=== PATIENT | male | born 1955 | race Caucasian/White ===

== ENCOUNTER 2017-09-07 18:05 | Emergency (ER) | payer BC, SELFPAY ==
[2017-09-07 18:07] VITALS: BP 140/79; PULSE 84; RESP 18; TEMP 36.6; O2SAT 97; BMI 34.2
--- NOTE | 2017-09-07 18:57 | RAD_ITS ---
STUDY: X-RAY - LEFT KNEE REASON FOR EXAM: Male, 62 years old. Pain TECHNIQUE: Four view(s) of the knee were obtained. COMPARISON: None. FINDINGS: The distal femur is unremarkable. The proximal tibia is unremarkable. There is mild narrowing of the medial femorotibial compartment. Normal lateral femorotibial compartment. Normal patellofemoral articulation. There is no fullness above the patella. The soft tissue structures are unremarkable. RAD/Knee 4 or More Views IMPRESSION: No acute abnormalities are seen in the left knee. There are mild degenerative changes medially. Electronically Signed: Annia Hill MD at 19:13 EDT Tel Direct: [phone], Service support ,
--- NOTE | 2017-09-07 19:21 | US_ITS ---
STUDY: VENOUS DOPPLER ULTRASOUND - LEFT LOWER EXTREMITY REASON FOR EXAM: Male, 62 years old. Left knee pain and swelling since this morning TECHNIQUE: Ultrasound evaluation of the deep vein system to include de jesus-scale imaging and compression was performed. De Jesus-scale imaging and Doppler sonographic evaluation, including duplex spectral analysis and qualitative color flow sonography, was performed. COMPARISON: None. FINDINGS: Common Femoral Vein: Normal compression, spontaneity and augmentation. Normal color Doppler. Common Femoral Vein/Greater Saphenous Junction: There is normal compression. No internal echoes are seen. Deep Femoral Vein: Not imaged Femoral Proximal: There is normal compression. No internal echoes are seen. Femoral Middle: Normal compression, spontaneity and augmentation. Normal color Doppler. Femoral Distal: There is normal compression. No internal echoes are seen. Popliteal Vein: Normal compression, spontaneity and augmentation. Normal color Doppler. Posterior Tibial Vein: Normal compression. No internal echoes are seen. Peroneal Vein: Normal compression. No internal echoes are seen. US/Venous Duplex Imag/Limited/Uni IMPRESSION: There is no evidence of deep venous thrombosis of the left lower extremity. Electronically Signed: Kasi Bass MD at 20:10 EDT , Service support ,
--- NOTE | 2017-09-07 19:49 | ED.VISSUMM ---
- ER Visit Summary Date of Service: 09/07/17 Chief Complaint: Left knee pain History of Present Illness: The patient is a 62 M who presents with left knee pain. It began earlier today. It was 8 out of 10. It improved with Advil down to a 5 out of 10. His is also concerned that he may have some calf swelling. He went to urgent care who was concerned for possible DVT although the patient has no risk factors. He was advised to be evaluated here in the ER. Physical Examination: Afebrile vitals are normal Heart regular rate and rhythm Lungs are clear Abdomen soft Patient has no edema of the lower leg he does not have any appreciable effusion his pain was isolated to the lateral left knee he has brisk capillary refill normal sensation light touch she has active full range of motion of the knee although this does reproduce some pain Test Results: Venous duplex is negative. Knee x-ray shows mild degenerative changes no acute abnormality. Emergency Department Course and Treatment: Patient was advised on supportive care including rest ice and elevation. I do believe this is due to left knee strain. He has a knee brace at home which he can use. He was also advised to use Advil for pain. All questions answered bedside. Patient agreeable to plan. Patient discharged. Treatment Plan: [] Disposition: Discharge Impression: Acute left knee pain This note was generated with [employer] dictation software. It may contain incorrect words, spelling, and punctuation that were not noted in review of the chart prior to signing ED Disposition - Plan for ED Patient: Chief Complaint: Lower Extremity Injury Referrals: Care Physician,No Primary [Primary Care Provider] -
--- NOTE | 2017-09-07 19:52 | ED.DEP ---
ED Disposition - Plan for ED Patient: Chief Complaint: Lower Extremity Injury Instructions: ED Knee Pain [facility] Referrals: Care Physician,No Primary [Primary Care Provider] -
[2017-09-07 20:11] VITALS: BP 139/87; PULSE 54; RESP 18; O2SAT 97
== END 2017-09-07 20:11 | disposition home or self-care (01) ==
PROVIDERS: Emergency Provider Emergency Medicine
DX: M25.562 Pain in left knee (principal); M79.89 Other specified soft tissue disorders; I10 Essential (primary) hypertension; Z79.82 Long term (current) use of aspirin; Z79.899 Other long term (current) drug therapy
CPT/HCPCS: 73564; 93971; 99282

== ENCOUNTER 2020-06-06 05:14 | Day surgery (SDC) | payer MEDICARE, SELFPAY ==
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
--- NOTE | 2020-05-28 14:08 | EKG12_ITS ---
Test Reason : PRE OP Blood Pressure : / mmHG Vent. Rate : 069 BPM Atrial Rate : 069 BPM P-R Int : 172 ms QRS Dur : 098 ms QT Int : 372 ms P-R-T Axes : 018 -11 029 degrees QTc Int : 398 ms Normal sinus rhythm Normal ECG Confirmed by STANLEY GODFREY, RIVER ([id number]), news video editor JAI LACKEY ([id number]) on 05/30/2020 7:35:49 AM Referred By: Ernesto Canada Confirmed By:RIVER ANGEL MD
[2020-05-28 15:12] LABS: Absolute Neutrophil Count 5.7 X10^3/uL (2.0-7.7); Basophil# 0.06 X10^3/uL; Basophil% 0.7 % (0-1); Eosinophils% 1.2 % (0-5); Hematocrit 44.3 % (40-54); Hemoglobin 14.9 g/dL (13.0-16.5); Lymphocyte % 23.7 % (19-41); Mean Corp Hgb Conc 33.6 g/dL (32-36); Mean Corpuscular Hgb 30.3 pg (27.0-32.0); Mean Platelet Vol. 9.2 fl (6.2-12.0); Monocyte# 0.61 X10^3/uL; Monocyte% 7.2 % (0-10); NRBC Flagged by Analyzer 0 % (0-5); Neutrophil # 5.65 X10^3/uL (2.7-7.7); Neutrophil % 66.8 % (47-70); Platelet Count 264 K/mm3 (150-450); RBC Distribution Width CV 11.9 % (11.6-14.6); RBC Distribution Width SD 39.2 fl (35.1-43.9); Red Blood Count 4.92 M/mm3 (4.6-6.2); White Blood Count 8.5 K/mm3 (4.4-11.0)
[2020-05-28 15:37] LABS: Magnesium 2.1 mg/dL (1.6-2.6)
[2020-05-28 15:48] LABS: Anion Gap 5 (5-15); BUN 18 mg/dL (7-18); BUN/Creat Ratio 19.8 RATIO (10-20); Calcium,Total 9.6 mg/dL (8.5-10.1); Chloride 104 mmol/L (98-107); Creatinine, Serum 0.91 mg/dL (0.70-1.30); EST Glomerular Filtration Rate 89 mL/min (>60); Est Glom Filt Rate - Afr Amer 107 mL/min (>60); Glucose 114 mg/dL (74-106); Potassium 3.7 mmol/L (3.5-5.1); Sodium Level 136 mmol/L (136-145)
[2020-06-06] VITALS (13 sets, daily range): BP systolic 92–138; BP diastolic 48–80; PULSE 48–78; RESP 16–18; TEMP 36–36.7; O2SAT 97–100; BMI 34.5
[2020-06-06] MEDS: Lactated Ringers 1,000 ML 999 ML IV ×2 (05:50→10:15)
[2020-06-06] MEDS: Gabapentin 600 MG Tablet PO (06:29)
[2020-06-06] MEDS: Acetaminophen 500 MG Tablet 1000 MG PO ×2 (06:30→14:16)
[2020-06-06] MEDS: Celecoxib 200 MG Capsule 400 MG PO (06:30)
[2020-06-06 06:55] LABS: Bedside Glucose 92 mg/dL (70-110)
[2020-06-06] MEDS: Lactated Ringers 1,000 ML 75 ML IV (07:05)
[2020-06-06] MEDS: Scopolamine 1mg/72hr Patch 1 PATCH TD (07:15)
[2020-06-06] MEDS: dexAMETHasone 10 MG/ML Vial IV (07:41)
--- NOTE | 2020-06-06 08:05 | RAD_ITS ---
STUDY: X-RAY - PELVIS AND LEFT HIP REASON FOR EXAM: Left hip pain, left hip arthroplasty. TECHNIQUE: 2 intraoperative images of the pelvis and hip. COMPARISON: None. FINDINGS: There is a left hip arthroplasty without evidence of complication. Electronically Signed: Chavez Hernández MD at 13:11 EDT Tel , Service support , RAD/Hip 1 view with Pelvis
--- NOTE | 2020-06-06 08:35 | PCM.OPRPT ---
Report of Operation Date of Procedure: 06/06/20 Pre-Operative Diagnosis: Left hip primary osteoarthritis Post-Operative Diagnosis: left hip primary osteoarthritis Surgery/Procedure Performed:: Left hip minimally invasive direct anterior total hip replacement Description of Surgical Findings:: Stable hip with equal leg lengths bureau chief: Behzad Vega Type of Anesthesia:: Spinal Anesthesiologist: Fly Sanchez Special Medications: Clindamycin and vancomycin, 1 g TXA at incision, 1 g TXA closure, 10 mg Decadron, joint cocktail (5 mg Duramorph, 30 mL of 0.5% Ropivicaine, 1000 units of epinephrine, 30 mg of Toradol) Specimen's removed: Bony cuts Estimated Blood Loss (mL): 250 Fluids Replaced: 1400 mL crystalloid Description of Procedure: Components used: 1. Accolade 2 Jonathan femoral stem size 7 132? 2. Jonathan trident 2 acetabular shell size 56 mm 3. Jonathan X3 polyethylene F 4. [place] Biolox delta 36mm, 2.5mm femoral head Brief history operative indications: 65 yo M who failed conservative measures for their hip osteoarthritis. X-rays were consistent with osteoarthritis including joint space narrowing, osteophyte formation and subchondral cysts. Total hip replacement was discussed with the patient with risks and benefits including but not limited to blood loss, DVTs, PEs, neurovascular damage, dislocation, general risks of anesthesia including loss of life. Patient demonstrated an understanding medical clearance is obtained the patient was consented for surgery. Procedure: On the date of procedure the patient's L hip was marked in the preoperative area. Patient was then taken back to the operating room where anesthesia assumed control of the C-spine and airway and administered anesthetic. Patient was transferred to the operating table and placed in the supine position. The hips were placed at the break of the bed and a sacral bump was placed. The L lower extremity was then prepped out in a sterile fashion using chlorhexidine while the surgeon scrubbed. The PA was vital in the positioning of the patient. Upon reentering the room the L lower extremity was draped in the standard orthopedic fashion and the incision was marked. A timeout was called and everyone agreed upon the side, the site, the procedure be performed, antibody given, and patient's identity. At this time incision was made through skin, subcutaneous tissue, and fat down to fascia. The fascia was then incised and the TFL was retracted laterally. A retractor was placed on the lateral border of the femoral neck. Attention was directed to the inferior portion of the approach and all crossing vessels were identified and appropriately coagulated. A retractor was then placed on the medial portion of the femoral neck. The anterior capsule was then cleared of all soft tissue and then H shaped capsulotomy was made. The retractors were then placed inside the capsule. The femoral neck was identified and a cleanup cut was made. At this time a power corkscrew was used to remove the femoral head. Attention was then turned toward the acetabulum where the soft tissues were appropriately retracted and the acetabulum was sequentially reamed to 56 mm. A 56 mm cup was then selected and impacted into place. Acetabular liner was impacted into place and locking mechanism was verified. The position of the acetabular cup was then verified under live fluoroscopy. Attention was then turned to the femur. Soft tissue releases on the medial and lateral femoral neck were appropriately done, the leg was externally rotated and lateralized. A Ho retractor was placed medially and proximally to the greater trochanter this allowed appropriate visualization and exposure of the femoral canal. Rongeour was then used to remove excess lateral bone. A canal finder and entry broach were used to open the proximal canal. Once we verified we were down the femoral canal we subsequently broached up to a size 7 femur. The appropriate neck was placed in the previously selected head was trialed with a 2.5 mm neck. Traction was pulled and the hip was reduced with internal rotation. Once it was appropriately reduced and stability was checked. There was minimal shuck, equal leg lengths and appropriate stability with hyperextension and external rotation as well as with 90? flexion and internal rotation. Fluoroscopy was then also used to verify the position of the components and leg lengths using the contralateral side for comparison. The trial components were then dislocated the proximal femur was again exposed and the components were removed from the wound. The final components were verified and opened. The wound was copiously irrigated out with normal saline. The acetabulum was checked for any residual debris. The final components were placed and impacted. Traction and internal rotation were again used to reduce the hip. After adequate reduction the hip remained stable with appropriate leg lengths. The final components were once again checked with live fluoroscopy and were found to be satisfactory. The wound was then copiously irrigated with normal saline once more, and hemostasis was obtained. Closure was then done using #1 Vicryl runner to close the fascia. A 2-0 vicryl interuppted sutures were used to close the subcutaneous skin. A 3-0 Monocryl and Steri-Strips were used for final skin closure. A Silverlon dressing was placed. Patient was awakened by anesthesia and transferred to the [facility]. Patient was then transferred to the PACU for recovery. Postoperative plan: Patient will get 24 hours postop antibiotics. Patient will get in-house physical therapy and will be weight-bear as tolerated. Patient will follow up in office in 2 weeks for a wound check and x-rays. Aspirin 81 mg twice daily. - Complications No intraoperative complications - Admit VTE Documentation VTE Present on Admission: No VTE Mechan Device Prophylaxis: SCD's, Thigh High GAVI Hose VTE Pharm Prophylaxis ordered?: Yes
--- NOTE | 2020-06-06 09:15 | RAD_ITS ---
STUDY: X-RAY - PELVIS AND LEFT HIP REASON FOR EXAM: Postop left hip arthroplasty. TECHNIQUE: 2 views of the pelvis and hip. COMPARISON: Intraoperative images obtained the same day. FINDINGS: There is postoperative gas in the soft tissues. Normal bilateral superior and inferior pubic rami. Normal pubic symphysis. Normal bilateral ischial tuberosities. There is a left hip arthroplasty without evidence of complication. RAD/Hip Min 2 Views (Portable) IMPRESSION: Uncomplicated left hip arthroplasty. Electronically Signed: Chavez Hernández MD at 12:11 EDT Tel , Service support ,
== END 2020-06-06 14:24 | disposition home or self-care (01) ==
LOC: SDC 05:14 → AC 05:15
PROVIDERS: Anesthesiology; PCP Family Medicine; Referring Provider Specialist; Visit Provider Specialist
PROC: (CPT 27284; principal; 2020-06-06 07:05)
DX: M16.12 Unilateral primary osteoarthritis, left hip (principal); I10 Essential (primary) hypertension; G47.30 Sleep apnea, unspecified; N40.0 Benign prostatic hyperplasia without lower urinary tract symptoms; E78.5 Hyperlipidemia, unspecified; Z87.891 Personal history of nicotine dependence; Z79.899 Other long term (current) drug therapy; Z79.82 Long term (current) use of aspirin
CPT/HCPCS: 01214; 27130; 36415; 73501; 73502; 76000; 80048; 82962; 83735; 85025; 87077; 87081; 87426; 93005; 97162; C1776; C9803; J7040; J7120

== ENCOUNTER → 2021-10-25 | Outpatient (CLI) | payer MEDICARE, SELFPAY ==
[2021-10-25 09:55] LABS: Hematocrit 44.3 % (40-54); Mean Corp Hgb Conc 33.9 g/dL (32-36); Mean Corpuscular Hgb 31.2 pg (27.0-32.0); Mean Corpuscular Volume 92.1 fL (80-94); Mean Platelet Vol. 9.4 fl (6.2-12.0); Platelet Count 225 K/mm3 (150-450); RBC Distribution Width CV 11.9 % (11.6-14.6); RBC Distribution Width SD 40.3 fl (35.1-43.9); Red Blood Count 4.81 M/mm3 (4.6-6.2); White Blood Count 5.2 K/mm3 (4.4-11.0)
[2021-10-25 10:33] LABS: ALB/GLOB Ratio 0.9 RATIO (0.9-2.4); AST(SGOT) 29 U/L (15-37); Alanine Aminotransfer ALT/SGPT 30 U/L (16-61); Albumin, Serum 3.5 g/dL (3.2-5.0); Alkaline Phosphatase 61 U/L (45-117); Anion Gap 4 (5-15); BUN 12 mg/dL (7-18); BUN/Creat Ratio 13.4 RATIO (10-20); Calcium,Total 9.2 mg/dL (8.5-10.1); Chloride 106 mmol/L (98-107); Cholesterol 231 mg/dL (200); EST Glomerular Filtration Rate 90 mL/min (>60); Est Glom Filt Rate - Afr Amer 109 mL/min (>60); Globulin 4.1 g/dL (2.2-4.2); Glucose 107 mg/dL (74-106); High Density Lipoprotein 45 mg/dL; PSA,Total - Annual Screen 0.42 ng/mL (0.00-4.00); Protein, Total 7.6 g/dL (6.4-8.2); Sodium Level 139 mmol/L (136-145); Triglycerides 122 mg/dL; Very Low Density Lipoprotein 24 mg/dL (5-40)
== END | disposition home or self-care (01) ==
PROVIDERS: PCP Nurse Practitioner Family; Visit Provider Nurse Practitioner Family
DX: Z00.00 Encounter for general adult medical examination without abnormal findings (principal); I10 Essential (primary) hypertension; Z12.5 Encounter for screening for malignant neoplasm of prostate
CPT/HCPCS: 36415; 80053; 80061; 84153; 85027; G0103

== ENCOUNTER 2022-01-15 12:56 | Emergency (ER) | payer MEDICARE, SELFPAY ==
[2022-01-15 12:56] VITALS: BP 132/110; PULSE 98; RESP 16; TEMP 36.4; O2SAT 99; BMI 34.3
[2022-01-15 12:58] VITALS: BP 132/110; PULSE 98; RESP 16; TEMP 36.4; O2SAT 99
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
[2022-01-15 14:58] VITALS: BP 130/99; PULSE 90; RESP 15; TEMP 36.3; O2SAT 99
== END 2022-01-15 15:33 | disposition home or self-care (01) ==
PROVIDERS: Emergency Provider Emergency Medicine; PCP Nurse Practitioner Family; Visit Provider Emergency Medicine
DX: L03.113 Cellulitis of right upper limb (principal)
CPT/HCPCS: 99282

== ENCOUNTER → 2022-07-25 | Outpatient (CLI) | payer MEDICARE, SELFPAY ==
[2022-07-25 09:57] LABS: Hematocrit 41.9 % (40-54); Hemoglobin 14.1 g/dL (13.0-16.5); Mean Corp Hgb Conc 33.7 g/dL (32-36); Mean Corpuscular Hgb 30.8 pg (27.0-32.0); Mean Corpuscular Volume 91.5 fL (80-94); Mean Platelet Vol. 9.2 fl (6.2-12.0); Platelet Count 214 K/mm3 (150-450); RBC Distribution Width CV 11.9 % (11.6-14.6); Red Blood Count 4.58 M/mm3 (4.6-6.2); White Blood Count 5.6 K/mm3 (4.4-11.0)
[2022-07-25 10:16] LABS: Hemoglobin A1c 5.6 % (3.8-5.6)
[2022-07-25 10:21] LABS: Microalbumin,Random Urine 19.2 mg/L (NO RANGE EST.); Microalbumin:Creatinine Ratio 13.7 mg/g CRE (<30 mg/g CRE)
[2022-07-25 10:32] LABS: Vitamin B12 234 pg/mL (211-911)
[2022-07-25 10:35] LABS: ALB/GLOB Ratio 0.9 RATIO (0.9-2.4); AST(SGOT) 20 U/L (15-37); Alanine Aminotransfer ALT/SGPT 28 U/L (16-61); Albumin, Serum 3.5 g/dL (3.2-5.0); Alkaline Phosphatase 68 U/L (45-117); Anion Gap 5 (5-15); BUN 16 mg/dL (7-18); BUN/Creat Ratio 19.1 RATIO (10-20); Calcium,Total 9.2 mg/dL (8.5-10.1); Chloride 105 mmol/L (98-107); Cholesterol 227 mg/dL (200); Creatinine, Serum 0.84 mg/dL (0.70-1.30); EST Glomerular Filtration Rate 97 mL/min (>60); Est Glom Filt Rate - Afr Amer 117 mL/min (>60); Free T3 2.7 pg/mL (2.18-3.98); Globulin 3.9 g/dL (2.2-4.2); Glucose 104 mg/dL (74-106); High Density Lipoprotein 33 mg/dL; Potassium 4.1 mmol/L (3.5-5.1); Protein, Total 7.4 g/dL (6.4-8.2); Sodium Level 138 mmol/L (136-145); T4 Free Direct 0.85 ng/dL (0.76-1.46); Thyroid Stim Hormone (TSH) 1.12 uIU/mL (0.358-3.74); Triglycerides 210 mg/dL; Very Low Density Lipoprotein 42 mg/dL (5-40)
== END | disposition home or self-care (01) ==
DX: I35.1 Nonrheumatic aortic (valve) insufficiency (principal); G47.00 Insomnia, unspecified; L40.9 Psoriasis, unspecified; G47.30 Sleep apnea, unspecified; Z13.1 Encounter for screening for diabetes mellitus; Z13.220 Encounter for screening for lipoid disorders; Z12.5 Encounter for screening for malignant neoplasm of prostate; Z13.29 Encounter for screening for other suspected endocrine disorder
CPT/HCPCS: 36415; 80053; 80061; 82043; 82570; 82607; 83036; 84439; 84443; 84481; 85027